=== PATIENT | male | born 2000 | race Caucasian/White ===

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

== ENCOUNTER 2023-11-15 20:57 | Emergency (ER) | payer SELFPAY ==
[2023-11-15 20:57] VITALS: BP 125/61; PULSE 96; RESP 18; TEMP 37.2; O2SAT 100; BMI 39.4
--- NOTE | 2023-11-15 21:15 | ED_ITS ---
<Statement entered by Laura Husain DO - 11/16/23 00:17> I was consulted by the QAMAR, and we discussed the complexity of the problems being addressed. I approved the treatment and management plan for this patient's care in the emergency department, thus performing a substantive portion of the medical decision making. Laura Husain DO Discharge Plan Disposition Patient Disposition: Home, Self-Care Condition: Good Prescriptions Prescriptions: New clindamycin HCl 150 mg capsule 150 mg PO Q8H 10 Days Qty: 30 0RF sulfamethoxazole-trimethoprim [Bactrim DS] 800-160 mg tablet 1 tab PO BID 10 Days Qty: 20 0RF hydrocodone-acetaminophen 5-325 mg tablet 1 tab PO Q8H PRN (Reason: pain) Qty: 10 0RF No Action cephalexin [Keflex] 500 MG capsule 500 mg PO TID Qty: 30 0RF azithromycin [Zithromax] 250 MG tablet 250 mg PO UD DOSE PK Qty: 6 0RF Rx Instructions: Take two (2) tablets today, then one (1) tablet days #2 thru #5 methylprednisolone [Medrol] 4 MG tablet 4 mg PO DIRECTED Qty: 21 0RF Rx Instructions: Take as directed on package instructions Referrals Follow up/Referrals: Mitch Cardenas MD [Staff Physician] - See instructions Provider,MD Shanika [Primary Care Provider] - See instructions Jorge Moya MD [Staff Physician] - See instructions Activity Restrictions/Add. Instructions Additional Instructions/Restrictions: Please call in the morning to make follow-up with general surgery. Return to ER for any worsening signs or symptoms. Clinical Impressions Clinical Impression: Pilonidal abscess Instructions Patient Instructions: DI for Skin Abscess Discharge ED Provider: Laura Husain General Adult HPI General Chief complaint: Skin/Abscess/Foreign Body Stated complaint: back pain, no accident Time Seen by Provider: 11/15/23 21:07 History of Present Illness HPI narrative: Patient presents for evaluation of a draining pilonidal abscess. Patient has a previous pilonidal abscess that was repaired however they were unable to fully excise it at the time. Patient has occasionally had drainage over the years but lately he has been having significant amount of pain and swelling and redness in the same area. He has not sought return evaluation with the surgeon. Related Data Previous Rx's Medication Instructions Recorded cephalexin 500 mg capsule (Keflex) 500 mg PO TID #30 caps 06/12/18 azithromycin 250 mg tablet 250 mg PO UD DOSE PK #6 tabs 08/14/18 (Zithromax) methylprednisolone 4 mg tablet 4 mg PO DIRECTED #21 tabs 08/14/18 (Medrol) clindamycin HCl 150 mg capsule 150 mg PO Q8H 10 days #30 caps 11/15/23 hydrocodone 5 mg-acetaminophen 325 1 tab PO Q8H PRN pain #10 tabs 11/15/23 mg tablet sulfamethoxazole 800 1 tab PO BID 10 days #20 tabs 11/15/23 mg-trimethoprim 160 mg tablet (Bactrim DS) Allergies Allergy/AdvReac Type Severity Reaction Status Date / Time No Known Allergies Allergy Verified 06/12/18 21:01 [facility] Disclaimer: The information contained in this section may have been updated after the patient was seen, as this information can be updated by other users. Social History Smoking Status: Never smoker second hand exposure: No alcohol intake: never current occupational status: unemployed Travel in the last 8 weeks: None household members: none ROS Obtained: Yes Systems reviewed as appropriate & no additional complaints except as documented Physical Exam General General appearance: alert and in no apparent distress Neck Neck exam: Present lymphadenopathy Respiratory Respiratory exam: Present normal lung sounds bilaterally Cardiovascular Cardiovascular exam: Present regular rate and normal rhythm Neurological Exam Neurological exam: Present alert and oriented X3; Absent CN II-XII intact Expanded Skin Exam Body image: 2 1. Medical Decision Making Medical Records Medical records reviewed: Yes I reviewed the patient's medical records. Puneet Inquiry Pt receiving controlled substance: No Vital Signs: 11/15/23 20:57 11/15/23 22:35 Temperature 98.9 F 98.9 F Temperature Source Oral Oral Pulse Rate 90 Pulse Rate [Right Brachial] 96 H Respiratory Rate 18 18 Blood Pressure 135/81 Blood Pressure [Right Arm] 125/61 Blood Pressure Mean [Right Arm] 82 02 Sat by Pulse Oximetry 100 Oxygen Delivery Method Room Air Lab Data Lab results reviewed: Yes I reviewed the patient's lab results. Orders (Tests/Meds): ED MEDICATIONS Discontinued Medications Generic Name Dose Route Start Last Admin Trade Name Freq PRN Reason Stop Dose Admin Acetaminophen 1,000 mg 11/15/23 21:57 11/15/23 22:25 Acetaminophen 1,000mg/100ml Vial IV 11/15/23 21:58 Not Given ONCE ONE Lactated Ringer's 1,000 mls @ 999 mls/hr 11/15/23 21:57 11/15/23 22:25 Lactated Ringer's 1000 Ml Bag IV 11/15/23 22:57 Not Given .Q1H1M ONE Ketorolac Tromethamine 15 mg 11/15/23 21:57 11/15/23 22:25 Ketorolac 30mg/Ml Vial IV 11/15/23 21:58 Not Given ONCE ONE Lidocaine HCl 10 ml 11/15/23 22:01 11/15/23 22:26 Lidocaine 1% 10ml Mdv SQ 11/15/23 22:02 10 ml ONCE ONE Administration Oxycodone HCl 5 mg 11/15/23 21:57 11/15/23 22:29 Oxycodone 5mg Immediate Release Tablet PO 11/15/23 21:58 5 mg ONCE ONE Administration Medical Decision Narrative: In summary patient is a 23-year-old male who presents to the emergency department for evaluation of recurrent pilonidal cyst. Patient is hemodynamically stable upon arrival, afebrile. Physical exam is remarkable for tenderness to palpation at the top of the shae cleft with induration and erythema.. Differential diagnosis includes pilonidal cyst versus cellulitis. Initial workup was considered including labs and imaging however patient has a visible evidence of purulence there are very small fistulous tract at the top of the cleft. Initial interventions include local anesthetic Tylenol Motrin and oxycodone orally. I&D performed at the bedside with a significant amount of purulence released. Wound packed. Patient is appropriate for discharge with referral to general surgery for follow-up. Patient started on clindamycin and Bactrim with prescription sent to his pharmacy and first dose given here. Procedures Abscess I/D Site: other ( cleft) Sedation/analgesia: other (Topical anesthetic) Local Anesthetic: lidocaine 1% Amount of anesthesia used (mL): 10 Technique: incised with #11 blade Amount of fluid expressed (mL): 10 Irrigation: No Packing used?: iodoform Critical Care Critical Care Time Critical Care Time: No
[2023-11-15] MEDS: LIDOCAINE 1% 10ML MDV 10 ML SQ (22:26)
[2023-11-15] MEDS: OXYCODONE 5MG IMMEDIATE RELEASE TABLET 5 MG PO (22:29)
[2023-11-15 22:35] VITALS: BP 135/81; PULSE 90; RESP 18; TEMP 37.2; O2SAT 100
== END 2023-11-15 22:35 | disposition home or self-care (01) ==
PROVIDERS: Emergency Provider Emergency Medicine
DX: L05.01 Pilonidal cyst with abscess (principal); M54.59 Other low back pain
CPT/HCPCS: 10080; 96361; 96374; 96375; 99284

== ENCOUNTER 2024-03-12 21:07 | Emergency (ER) | payer BC, SELFPAY ==
[2024-03-12 21:35] VITALS: BP 127/69; PULSE 56; RESP 16; TEMP 36.9; O2SAT 97; BMI 34.0
--- NOTE | 2024-03-12 21:38 | PC.NURSE ---
Dr. Aceves s/w Dr. Cardenas for consult
[2024-03-12] MEDS: KETOROLAC 30MG/ML VIAL 15 MG IV (21:58)
[2024-03-12] MEDS: OXYCODONE 5MG IMMEDIATE RELEASE TABLET 5 MG PO (21:58)
--- NOTE | 2024-03-12 22:00 | [facility].EDGENADL ---
Discharge Plan Disposition Patient Disposition: Home, Self-Care Prescriptions Prescriptions: No Action cephalexin [Keflex] 500 MG capsule 500 mg PO TID Qty: 30 0RF azithromycin [Zithromax] 250 MG tablet 250 mg PO UD DOSE PK Qty: 6 0RF Rx Instructions: Take two (2) tablets today, then one (1) tablet days #2 thru #5 methylprednisolone [Medrol] 4 MG tablet 4 mg PO DIRECTED Qty: 21 0RF Rx Instructions: Take as directed on package instructions clindamycin HCl 150 mg capsule 150 mg PO Q8H 10 Days Qty: 30 0RF sulfamethoxazole-trimethoprim [Bactrim DS] 800-160 mg tablet 1 tab PO BID 10 Days Qty: 20 0RF hydrocodone-acetaminophen 5-325 mg tablet 1 tab PO Q8H PRN (Reason: pain) Qty: 10 0RF Referrals Follow up/Referrals: Mitch Cardenas MD [Staff Physician] - See instructions Provider,MD Shanika [Primary Care Provider] - See instructions Activity Restrictions/Add. Instructions Additional Instructions/Restrictions: Call Dr. Cardenas's office tomorrow, 8:21 AM to schedule an appointment for Wednesday, 03/14. [phone] Information also listed here. Lidocaine topically for pain. Take Tylenol 1000 mg every 6 hours (4 times daily) and ibuprofen 400 mg every 6 hours (4 times daily) as needed with food and water to prevent GI upset and kidney damage. Clinical Impressions Clinical Impression: External hemorrhoid, thrombosed Print Language Print Language: Mohawk Discharge ED Provider: Antonio Aceves General Adult HPI General Chief complaint: PAIN Stated complaint: pain and swelling in rectum, burning Time Seen by Provider: 03/12/24 21:30 Mode of Arrival: Ambulatory Source of Information: Patient Limitations: No Limitations Description of Symptoms (Recalled from ER Triage Doc. by RN): Pt reports to ED with cc of pain in his rectum. Pt states he has a hemorrhoid. Pt states he has the hemorrhoid for 2 days. Pt describes the pain as a 7 out of 10 and severe burning. Pt states he went 4 days with out having a BM but had a BM this morning and has blood when he wipes. History of Present Illness HPI narrative: Please note that above description of symptoms, in this electronic medical record under categorization of recalled from ER triage doctor by RN are reflective of an initial nursing assessment, however, is not reflective of my full history and physical exam that was personally taken and clarified. Consequentially, this preceding description of symptoms, which may include the patient's categorized chief complaint in the EMR, do not reflect my personal clinical impression, and the ultimate description of history of present illness and patient stated complaints should be deferred to this section of the note. Unless stated otherwise or congruent with this section of the note, additional signs, symptoms, or incongruence should be interpreted as inaccurate with my clinical impression. Related Data Previous Rx's ?Medication ?Instructions ?Recorded cephalexin 500 mg capsule (Keflex) 500 mg PO TID #30 caps 06/12/18 azithromycin 250 mg tablet 250 mg PO UD DOSE PK #6 tabs 08/14/18 (Zithromax) methylprednisolone 4 mg tablet 4 mg PO DIRECTED #21 tabs 08/14/18 (Medrol) clindamycin HCl 150 mg capsule 150 mg PO Q8H 10 days #30 caps 11/15/23 hydrocodone 5 mg-acetaminophen 325 1 tab PO Q8H PRN pain #10 tabs 11/15/23 mg tablet sulfamethoxazole 800 1 tab PO BID 10 days #20 tabs 11/15/23 mg-trimethoprim 160 mg tablet (Bactrim DS) Allergies Allergy/AdvReac Type Severity Reaction Status Date / Time No Known Allergies Allergy Verified 06/12/18 21:01 [facility] Disclaimer: The information contained in this section may have been updated after the patient was seen, as this information can be updated by other users. Social History Smoking Status: Current every day smoker tobacco type: cigarettes packs per day: 1 second hand exposure: No alcohol intake: never current occupational status: unemployed Travel in the last 8 weeks: None household members: none Other Medical History Have you received the Flu Vaccine for this season: Yes Have you received the Pneumonia Vaccine: No ROS Obtained: Yes All systems reviewed & no additional complaints except as documented Physical Exam General General appearance: alert Head Head exam: atraumatic and normocephalic Eye Eye exam: Present normal appearance, PERRL and EOMI Neck Neck exam: Present normal inspection, full ROM and trachea midline Respiratory Respiratory exam: Absent respiratory distress, wheezes, stridor, accessory muscle use or prolonged expiratory phase Cardiovascular Cardiovascular exam: Present other (Pulses equal symmetric in upper and lower extremities) Abdominal Exam Abdominal exam: Present soft; Absent distention, tenderness or pulsatile mass Extremities Exam Extremities exam: Absent edema Neurological Exam Neurological exam: Present alert, oriented X3 and CN II-XII intact; Absent motor sensory deficit Skin Skin exam: Present warm and dry; Absent diaphoresis or erythema Medical Decision Making Medical Records Medical records reviewed: Yes I reviewed the patient's medical records. Screening: Per USPSTF and CDC recommendations, given the prevalence of disease in our region, it is our hospital?s policy to screen for HIV and viral Hepatitis for all patients aged 18 and over and those with ongoing risk factors. Puneet Inquiry Pt receiving controlled substance: No Puneet was queried for this patient: No Vital Signs: 03/12/24 21:35 Temperature 98.4 F Temperature Source Oral Pulse Rate [Left Radial] 56 L Respiratory Rate 16 Blood Pressure [Right Arm] 127/69 Blood Pressure Mean [Right Arm] 88 Blood Pressure Source [Right Arm] Automatic Cuff 02 Sat by Pulse Oximetry 97 Oxygen Delivery Method Room Air Orders (Tests/Meds): ED MEDICATIONS Generic Name Dose Route Start Last Admin Trade Name Freq PRN Reason Stop Dose Admin Lidocaine 1 gm 03/12/24 21:41 03/12/24 22:01 Lidocaine 5% Ointment 35gm Tube TP 04/11/24 21:40 1 gm NEEDED PRN Administration Perianal Irritation Discontinued Medications Generic Name Dose Route Start Last Admin Trade Name Freq PRN Reason Stop Dose Admin Ketorolac Tromethamine 15 mg 03/12/24 21:42 03/12/24 21:58 Ketorolac 30mg/Ml Vial IV 03/12/24 21:43 15 mg ONCE ONE Administration Oxycodone HCl 5 mg 03/12/24 21:42 03/12/24 21:58 Oxycodone 5mg Immediate Release Tablet PO 03/12/24 21:43 5 mg ONCE ONE Administration Medical Decision Narrative: Is a 23-year-old male with history of hemorrhoids presenting with hemorrhoid pain. He states has been getting worse over the last couple of days. Blood when he wipes. Pain is moderate to severe, made worse with pressure or bowel movements. Does not radiate. No fevers or chills, nausea or vomiting, purulent drainage, etc. No trauma to the area. States that he does do heavy lifting and has for a while, thinks this contributes to hemorrhoids. Has not noticed anything that makes the pain better. States that he had family member look at it and stated it looked very abnormal, so came in for further evaluation. History obtained the patient. On arrival, patient appears uncomfortable. Rectal exam with large, thrombosed hemorrhoid about 2 cm. Extremely tender and fluctuant. No other abnormalities at the rectum. Because grossly thrombosed hemorrhoid, labs and imaging considered, including CT of the abdomen and pelvis, but not deemed necessary. Surgeon on-call, Dr. Cardensa, was contacted and case was discussed. Recommended pain control here in the emergency department, following up for more controlled drainage and thrombosis removal in clinic if possible. I am Toradol, p.o. oxycodone, topical lidocaine 5% ointment was applied. On reevaluation, patient feeling much better. Because patient at baseline without signs or symptoms of clinical decompensation, deemed appropriate for discharge. Results were relayed to patient who voiced understanding and were agreeable to outpatient management and follow up. I discussed my clinical impression with patient and answered all questions. At this time, the evidence for any other entities in the differential is insufficient to warrant any further testing or ED observation. This was explained as well. Advisory was given that persistent or worsening symptoms require further evaluation. I confirmed the understanding of this discussion. Process Checker disclaimer Much of this encounter note is an electronic bundling machine operator spoken language to printed text. Electronic bundling machine operator of the spoken language may permit errors. Although I have reviewed the note, some errors may still exist. Critical Care Critical Care Time Critical Care Time: No
[2024-03-12] MEDS: LIDOCAINE 5% OINTMENT 35GM TUBE TP (22:01)
[2024-03-12 22:47] VITALS: BP 127/69; PULSE 52; RESP 18; TEMP 36.8; O2SAT 96
== END 2024-03-12 22:53 | disposition home or self-care (01) ==
PROVIDERS: Emergency Provider Emergency Medicine
DX: K64.5 Perianal venous thrombosis (principal); K62.9 Disease of anus and rectum, unspecified
CPT/HCPCS: 96374; 99283; J1885